=== PATIENT | female | born 1990 | race Caucasian/White ===

== ENCOUNTER 2019-05-21 17:20 | Emergency (ER) | payer BC ==
[~2019-05-21] VITALS: Ht 172.7 cm; Wt 81.6 kg
[2019-05-21 18:01] VITALS: BP 127/60
--- NOTE | 2019-05-21 18:22 | PHYS DOC ---
Past Medical History Past Medical History: No Pertinent History (MILA JIANG APRN) Past Surgical History: Other Additional Past Surgical Histo: dental (MILA JIANG APRN) Alcohol Use: None Drug Use: None (MILA JIANG APRN) Adult General Chief Complaint Chief Complaint: BLOOD IN URINE [facility] HPI Patient is a 28 year old female that presents with hematuria and frequency with lower pelvic pressure this been ongoing for 3 days. The patient states her pain as 3 out of 10 in severity and sharp. She states her last pressure. Started on May 12 but has since ended. (MILA JIANG APRN) Review of Systems Review of Systems Constitutional: Denies fever or chills [] Eyes: Denies change in visual acuity, redness, or eye pain [] HENT: Denies nasal congestion or sore throat [] Respiratory: Denies cough or shortness of breath [] Cardiovascular: No additional information not addressed in HPI [] GI: Reports lower pelvic pain Denies nausea, vomiting, bloody stools or diarrhea [] : Reports hematuria and frequency. Musculoskeletal: Denies back pain or joint pain [] Integument: Denies rash or skin lesions [] Neurologic: Denies headache, focal weakness or sensory changes [] Endocrine: Denies polyuria or polydipsia [] Complete systems were reviewed and found to be within normal limits, except as documented in this note. (MILA JIANG APRN) Allergies Allergies Allergies Coded Allergies Type Severity Reaction Last Updated Verified No Known Drug Allergies 07/03/15 No (KATHY HUERTAS MD) Physical Exam Physical Exam Constitutional: Well developed, well nourished, no acute distress, non-toxic appearance. [] HENT: Normocephalic, atraumatic, bilateral external ears normal, oropharynx moist, no oral exudates, nose normal. [] Eyes: PERRLA, EOMI, conjunctiva normal, no discharge. [] Neck: Normal range of motion, no tenderness, supple, no stridor. [] Cardiovascular:Heart rate regular rhythm, no murmur [] Lungs & Thorax: Bilateral breath sounds clear to auscultation [] Abdomen: Bowel sounds normal, soft, no tenderness, no masses, no pulsatile masses. [] Skin: Warm, dry, no erythema, no rash. [] Back: No tenderness, no CVA tenderness. [] Extremities: No tenderness, no cyanosis, no clubbing, ROM intact, no edema. [] Neurologic: Alert and oriented X 3, normal motor function, normal sensory f unction, no focal deficits noted. [] Psychologic: Affect normal, judgement normal, mood normal. [] (MILA JIANG APRN) Current Patient Data Vital Signs Vital Signs Date Time Temp Pulse Resp B/P (MAP) Pulse Ox O2 Delivery O2 Flow Rate FiO2 05/21/19 18:01 98.7 78 18 127/60 (82) 99 Room Air 98.7 (KATHY HUERTAS MD) Lab Values Laboratory Tests Test 05/21/19 18:04 05/21/19 18:10 Urine Collection Type Void Urine Color [place] Urine Clarity Clear Urine pH 5.5 Urine Specific [place] 1.010 Urine Protein Negative mg/dL (NEG-TRACE) Urine Glucose (UA) Negative mg/dL (NEG) Urine Ketones (Stick) Negative mg/dL (NEG) Urine Blood Large (NEG) Urine Nitrite Positive (NEG) Urine Bilirubin Negative (NEG) Urine Urobilinogen Dipstick 1.0 mg/dL (0.2 mg/dL) Urine Leukocyte Esterase Moderate (NEG) Urine RBC 3-5 /HPF (0-2) Urine WBC >40 /HPF (0-4) Urine Squamous Epithelial Cells Few /LPF Urine Bacteria Moderate /HPF (0-FEW) POC Urine HCG, Qualitative Hcg negative (Negative) (KATHY HUERTAS MD) EKG EKG [] (MILA JIANG APRN) Radiology/Procedures Radiology/Procedures [] (MILA JIANG APRN) Course & Med Decision Making Course & Med Decision Making Pertinent Labs and Imaging studies reviewed. (See chart for details) Will get UA. UA shows nitrate and leukocytes. Will treat for UTI. Patient request medicine for yeast infections as she normally gets yeast infections with antibiotics. (MILA JIANG APRN) Course & Med Decision Making Staff Physician Addendum: I was working in the ER during the course of this patient's visit. I was available for consultation as needed, but I was not directly involved in the care of this patient. (KATHY HUERTAS MD) Dragon Disclaimer Dragon Disclaimer This electronic medical record was generated, in whole or in part, using a voice recognition dictation system. (MILA JIANG APRN) Departure Departure Impression: Primary Impression: Urinary tract infection Disposition: HOME, SELF-CARE Condition: STABLE Referrals: NO PCP (PCP) Patient Instructions: Urinary Tract Infection Additional Instructions: Thank you for visiting [facility]. We appreciate you trusting us with your care. If any additional problems come up don't hesitate to return to visit us. Please follow up with your primary care provider so they can plan additional care if needed and know about the problem that you had. If symptoms worsen come back to the Emergency Department. Any concerning symptoms that start such as chest pain, shortness of air, weakness or numbness on one side of the body, running high fevers or any other concerning symptoms return to the ER. You have been prescribed an antibiotic today to help fight your infection. Please take all of the antibiotic as directed. If after 48 hours the infection is not improving, please return for more care. If the infection worsens, return to ER for additional care. Scripts Fluconazole (DIFLUCAN) 150 Mg Tablet 1 TAB PO ONCE, #1 TAB 1 Refill Prov: MILA JIANG APRN 05/21/19 Cephalexin (KEFLEX) 500 Mg Capsule 1 CAP PO BID for 7 Days, #14 CAP 0 Refills Prov: MILA JIANG APRN 05/21/19 Problem Qualifiers Primary Impression: Urinary tract infection Urinary tract infection type: acute cystitis Hematuria presence: with hematuria Qualified Codes: N30.01 - Acute cystitis with hematuria MILA JIANG APRN May 21, 2019 18:22 KATHY HUERTAS MD May 21, 2019 22:26
[2019-05-21 18:25] LABS: BILIRUBIN,URINE NEGATIVE (NEG); CLARITY,URINE CLEAR; COLOR,URINE ORANGE; NITRITE,URINE POSITIVE (NEG); PH,URINE 5.5; PROTEIN,URINE NEGATIVE (NEG-TRACE)
[2019-05-21 18:46] LABS: WBC,URINE >40 /HPF (0-4)
[2019-05-21 18:47] LABS: BACTERIA,URINE MODERATE /HPF (0-FEW); SQUAMOUS EPITHELIAL CELL,UR FEW /LPF
[2019-05-21] MEDS ORDERED: CEPH-264 PO (18:51)
[2019-05-21] MEDS ORDERED: FLUC150T PO (18:55)
== END 2019-05-21 18:59 | disposition home or self-care (01) ==
LOC: ER 17:20
DX: N30.01 Acute cystitis with hematuria (principal); R35.0 Frequency of micturition
CPT/HCPCS: 81001; 81025; 87086; 99284

== ENCOUNTER 2020-08-08 19:11 | Emergency (ER) | payer BC, MEDICAID, OTHER ==
[~2020-08-08] VITALS: Ht 172.7 cm; Wt 84.1 kg
[~2020-08-08 19:11] MED LIST: CEPH-264 PO; FLUC150T PO
[2020-08-08 19:50] LABS: BILIRUBIN,URINE NEGATIVE (NEG); CLARITY,URINE CLEAR; COLOR,URINE YELLOW; NITRITE,URINE NEGATIVE (NEG); PROTEIN,URINE NEGATIVE (NEG-TRACE); UROBILINOGEN,URINE 0.2 mg/dL (0.2 mg/dL)
[2020-08-08 19:58] LABS: AMORPHOUS SEDIMENT,UR PRESENT /HPF; BACTERIA,URINE FEW /HPF (0-FEW); WBC,URINE 20-40 /HPF (0-4)
[2020-08-08 21:02] LABS: BASO # 0.1 x10^3/uL (0.0-0.2); BASO % 1 % (0-3); EOS # 0.1 x10^3/uL (0.0-0.7); EOS % 1 % (0-3); HEMATOCRIT 36.4 % (36.0-47.0); HEMOGLOBIN 12.4 g/dL (12.0-15.5); LYMPH # 2.9 x10^3/uL (1.0-4.8); LYMPH % 36 % (24-48); MEAN CORPUSCULAR HEMOGLOBIN 32 pg (25-35); MEAN CORPUSCULAR HGB CONC 34 g/dL (31-37); MEAN CORPUSCULAR VOLUME 94 fL (79-100); MONO # 0.5 x10^3/uL (0.0-1.1); MONO % 7 % (0-9); NEUT # 4.6 x10^3/uL (1.8-7.7); NEUT % 56 % (31-73); PLATELET COUNT 188 x10^3/uL (140-400); RED BLOOD COUNT 3.86 x10^6/uL (3.50-5.40); RED CELL DISTRIBUTION WIDTH 13.1 % (11.5-14.5); WHITE BLOOD COUNT 8.1 x10^3/uL (4.0-11.0)
--- NOTE | 2020-08-08 21:58 | ED.ADGEN ---
Past Medical History Past Medical History: No Pertinent History Past Surgical History: Other Additional Past Surgical Histo: dental Smoking Status: Never Smoker Alcohol Use: None Drug Use: None General Adult EDM: Chief Complaint: VAGINAL BLEEDING HPI: HPI: Patient is a 30 year old female who presents emergency department with complaints of vaginal bleeding and . Patient reports her last menstrual cycle was on June 13, 2020. Patient is 3, para 2. She denies any pain at this time. Patient describes the bleeding is bright red in color. She denies any back pain, dysuria, hematuria, increased urinary frequency, nausea, vomiting, diarrhea, or abdominal pain. Patient states that her STEWARD/STEWARDESS SECOND is Dr. Diallo. She has not had her first appointment for this as of yet. Review of Systems: Review of Systems: Complete ROS is negative unless otherwise noted in HPI. Allergies: Allergies: Allergies Coded Allergies Type Severity Reaction Last Updated Verified No Known Drug Allergies 07/03/15 No Physical Exam: PE: See Above Constitutional: Well developed, well nourished, no acute distress, non-toxic appearance. [] HENT: Normocephalic, atraumatic, bilateral external ears normal, nose normal. [] Eyes: PERRLA, EOMI, conjunctiva normal, no discharge. [] Neck: Normal range of motion, no stridor. [] Cardiovascular:Heart rate regular rhythm Lungs & Thorax: Respirations even and unlabored, no retractions, no respiratory distress Abdomen: soft, no tenderness, no palpable masses Skin: Warm, dry, no erythema, no rash. [] Extremities: No cyanosis, ROM intact, no edema. [] Neurologic: Alert and oriented X 3, no focal deficits noted. [] Psychologic: Affect normal, judgement normal, mood normal. [] Current Patient Data: Labs: Laboratory Tests Test 08/08/20 19:20 08/08/20 19:24 08/08/20 20:45 Urine Collection Type Unknown Urine Color Yellow Urine Clarity Clear Urine pH 6.0 (<5.0-8.0) Urine Specific [place] 1.025 (1.000-1.030) Urine Protein Negative mg/dL (NEG-TRACE) Urine Glucose (UA) Negative mg/dL (NEG) Urine Ketones (Stick) Negative mg/dL (NEG) Urine Blood Large (NEG) Urine Nitrite Negative (NEG) Urine Bilirubin Negative (NEG) Urine Urobilinogen Dipstick 0.2 mg/dL (0.2 mg/dL) Urine Leukocyte Esterase Moderate (NEG) Urine RBC 1-2 /HPF (0-2) Urine WBC 20-40 /HPF (0-4) Urine Squamous Epithelial Cells Few /LPF Urine Amorphous Sediment Present /HPF Urine Bacteria Few /HPF (0-FEW) Urine Mucus Slight /LPF POC Urine HCG, Qualitative Hcg positive (Negative) White Blood Count 8.1 x10^3/uL (4.0-11.0) Red Blood Count 3.86 x10^6/uL (3.50-5.40) Hemoglobin 12.4 g/dL (12.0-15.5) Hematocrit 36.4 % (36.0-47.0) Mean Corpuscular Volume 94 fL (79-100) Mean Corpuscular Hemoglobin 32 pg (25-35) Mean Corpuscular Hemoglobin Concent 34 g/dL (31-37) Red Cell Distribution Width 13.1 % (11.5-14.5) Platelet Count 188 x10^3/uL (140-400) Neutrophils (%) (Auto) 56 % (31-73) Lymphocytes (%) (Auto) 36 % (24-48) Monocytes (%) (Auto) 7 % (0-9) Eosinophils (%) (Auto) 1 % (0-3) Basophils (%) (Auto) 1 % (0-3) Neutrophils # (Auto) 4.6 x10^3/uL (1.8-7.7) Lymphocytes # (Auto) 2.9 x10^3/uL (1.0-4.8) Monocytes # (Auto) 0.5 x10^3/uL (0.0-1.1) Eosinophils # (Auto) 0.1 x10^3/uL (0.0-0.7) Basophils # (Auto) 0.1 x10^3/uL (0.0-0.2) Maternal Serum HCG Beta Subunit 20998 mIU/mL (0-5) H Laboratory Tests 08/08/20 20:45 Vital Signs: Vital Signs Date Time Temp Pulse Resp B/P (MAP) Pulse Ox O2 Delivery O2 Flow Rate FiO2 08/08/20 22:36 82 22 123/61 (81) 100 Room Air 08/08/20 19:20 98.1 98.1 EKG: EKG: [] Heart Score: Risk Factors: Risk Factors: DM, Current or recent (<one month) smoker, HTN, HLP, family history of CAD, obesity. Risk Scores: Score 0 - 3: 2.5% MACE over next 6 weeks - Discharge Home Score 4 - 6: 20.3% MACE over next 6 weeks - Admit for Clinical Observation Score 7 - 10: 72.7% MACE over next 6 weeks - Early Invasive Strategies Radiology/Procedures: Radiology/Procedures: PROCEDURE: PREG 1ST TRIMESTER Obstetric ultrasound less than 14 weeks: Reason for examination: Vaginal bleeding with . Transvaginal ultrasound examination of the pelvis was performed. Uterus measures approximately 10 x 5.7 x 5.1 cm in greatest dimensions. There is a gestational sac in the endometrial cavity which shows a normal contour. No pole or yolk sac is identified at this time. Gestational sac shows a mean diameter of 1.83 cm which corresponds to gestational age of 6 weeks 5 days. This could reflect early gestation but blighted ovum cannot be excluded and follow- up ultrasound is recommended. Right ovary measures 2.9 x 2.4 x 2.3 cm in greatest dimension with good vascular flow. There is a 1.7 cm cystic lesion probably representing a corpus luteal cyst. Left ovary measures 2.5 x 1.7 x 1.6 cm in greatest dimension with good vascular flow and no mass. IMPRESSION: Intrauterine gestational sac identified but no yolk sac or pole identified at this time. This may reflect early gestation however blighted ovum cannot be excluded. Recommend follow-up ultrasound evaluation. [] Course & Med Decision Making: Course & Med Decision Making Pertinent Labs and Imaging studies reviewed. (See chart for details) 30-year-old female presents emergency department complaints of light vaginal bleeding during . CBC was unremarkable; UA revealed 20-40 white blood cells with few bacteria, patient denied any symptoms; type is O+; patient's hCG level was 16,043. Ultrasound revealed a empty gestational sac with no pole or yolk sac identified. I advised the patient of her results and informed her that she is likely having a miscarriage. I offered to contact patient's OB Dr. Diallo to inform him of the patient in the emergency room and possibly arrange for D&C. Patient stated that she would like to go home. I provided the patient with current hCG level and encouraged her to practice pelvic rest until she follows up with Dr. Diallo, I advised her to call Dr. Diallo's office on Tuesday for reevaluation and a repeat hCG level. I instructed the patient to return to the ER if her symptoms worsened or fever develop. Patient verbalized an understanding of home care, medications, follow-up, and return to ED instructions and was in agreement with the plan of care. [] Dragon Disclaimer: Dragon Disclaimer: This electronic medical record was generated, in whole or in part, using a voice recognition dictation system. Departure Departure Impression: Primary Impression: Threatened in first trimester Disposition: 01 DC HOME SELF CARE/HOMELESS Condition: STABLE Referrals: MILA DIALLO MD (PCP) Patient Instructions: Threatened Miscarriage, [id number] Additional Instructions: Follow up with Dr. Diallo's office next week for repeat ultrasound and HCG. Today your level was 16,043. Return to the ER if your symptoms worsen. KLAUS TAYLOR APRN Aug 08, 2020 21:58
--- NOTE | 2020-08-08 22:15 | RAD ---
Obstetric ultrasound less than 14 weeks: Reason for examination: Vaginal bleeding with . Transvaginal ultrasound examination of the pelvis was performed. Uterus measures approximately 10 x 5.7 x 5.1 cm in greatest dimensions. There is a gestational sac in the endometrial cavity which shows a normal contour. No pole or yolk sac is identified at this time. Gestational sac shows a mean diameter of 1.83 cm which corresponds to gestational age of 6 wee ks 5 days. This could reflect early gestation but blighted ovum cannot be excluded and follow-up ultr asound is recommended. Right ovary measures 2.9 x 2.4 x 2.3 cm in greatest dimension with good vascular flow. There is a 1.7 cm cystic lesion probably representing a corpus luteal cyst. Left ovary measures 2.5 x 1.7 x 1.6 cm in greatest dimension with good vascular flow and no mass. IMPRESSION: Intrauterine gestational sac identified but no yolk sac or pole identified at this time. This m ay reflect early gestation however blighted ovum cannot be excluded. Recommend follow-up ultrasound e valuation. Electronically signed by: Regina Polo MD (08/08/2020 10:12 PM) DEVI
[2020-08-08 22:36] VITALS: BP 123/61
== END 2020-08-08 22:36 | disposition home or self-care (01) ==
LOC: ER 19:11
DX: O20.0 Threatened abortion (principal); Z98.890 Other specified postprocedural states; Z3A.01 Less than 8 weeks gestation of pregnancy
CPT/HCPCS: 36415; 76801; 81001; 81025; 84702; 85025; 86900; 86901; 87086; 99285

== ENCOUNTER → 2020-08-11 | Outpatient (CLI) | payer OTHER ==
[2020-08-08 22:36] VITALS: BP 123/61
== END ==
LOC: LAB 14:54
PROVIDERS: ATTEND Obstetrics & Gynecology
DX: O02.1 Missed abortion (principal)
CPT/HCPCS: 36415; 84702

== ENCOUNTER → 2020-08-27 | Outpatient (CLI) | payer OTHER ==
[2020-08-08 22:36] VITALS: BP 123/61
== END ==
LOC: LAB 11:56
PROVIDERS: ATTEND Obstetrics & Gynecology
DX: N89.8 Other specified noninflammatory disorders of vagina (principal)
CPT/HCPCS: 88175; Q0111

== ENCOUNTER → 2020-09-24 | Outpatient (CLI) | payer OTHER | LOC: SPEC 11:28 | PROVIDERS: ATTEND Obstetrics & Gynecology | DX: Z20.2 Contact with and (suspected) exposure to infections with a predominantly sexual mode of transmission (principal) | CPT/HCPCS: 87491; 87591; 87661 ==

== ENCOUNTER → 2020-12-05 | Outpatient (CLI) | payer OTHER | LOC: SPEC 11:00 | PROVIDERS: ATTEND Obstetrics & Gynecology | DX: Z20.2 Contact with and (suspected) exposure to infections with a predominantly sexual mode of transmission (principal) | CPT/HCPCS: 87491; 87591; 87661; Q0111 ==

== ENCOUNTER → 2020-12-31 | Outpatient (CLI) | payer OTHER | LOC: SPEC 15:14 | PROVIDERS: ATTEND Obstetrics & Gynecology | DX: A64 Unspecified sexually transmitted disease (principal); N89.8 Other specified noninflammatory disorders of vagina | CPT/HCPCS: 87491; 87591; 87661; Q0111 ==

== ENCOUNTER → 2021-03-06 | Outpatient (CLI) | payer OTHER | LOC: LAB 12:03 | PROVIDERS: ATTEND Internal Medicine Pulmonary Disease | DX: Z20.822 Contact with and (suspected) exposure to COVID-19 (principal) | CPT/HCPCS: U0003; U0005 ==

== ENCOUNTER → 2021-03-13 | Outpatient (CLI) | payer OTHER | LOC: LAB 13:25 | PROVIDERS: ATTEND Internal Medicine Pulmonary Disease | DX: Z20.822 Contact with and (suspected) exposure to COVID-19 (principal) | CPT/HCPCS: U0003; U0005 ==

== ENCOUNTER 2021-05-09 11:36 | Emergency (ER) | payer OTHER ==
[~2021-05-09] VITALS: Ht 172.7 cm; Wt 86.8 kg
[2021-05-09 12:30] LABS: BILIRUBIN,URINE SMALL (NEG); CLARITY,URINE TURBID; COLOR,URINE AMBER; NITRITE,URINE NEGATIVE (NEG); PH,URINE 5.5 (<5.0-8.0); PROTEIN,URINE 30 mg/dL (NEG-TRACE)
[2021-05-09] MEDS ORDERED: DOXY100C3 PO (12:41)
--- NOTE | 2021-05-09 12:41 | PHYS DOC ---
Past Medical History Past Medical History: No Pertinent History Past Surgical History: No Surgical History Additional Past Surgical Histo: dental Smoking Status: Never Smoker Alcohol Use: None Drug Use: None General Adult EDM: Chief Complaint: SEXUALLY TRANSMITTED DISEASE HPI: HPI: Patient is a 30 year old female who presents with 1 day of white discharge with a foul smell. She states she has had unprotected sex and would like to be treated for STDs today also. She denies urinary symptoms, abdominal pain, nausea, vomiting, diarrhea, back pain, fever, shortness of breath, chest pain. Review of Systems: Review of Systems: Constitutional: Denies fever or chills. [] Eyes: Denies change in visual acuity. [] HENT: Denies nasal congestion or sore throat. [] Respiratory: Denies cough or shortness of breath. [] Cardiovascular: Denies chest pain or edema. [] GI: Denies abdominal pain, nausea, vomiting, bloody stools or diarrhea. [] : Denies dysuria. + Vaginal discharge [] Musculoskeletal: Denies back pain or joint pain. [] Integument: Denies rash. [] Neurologic: Denies headache, focal weakness or sensory changes. [] Endocrine: Denies polyuria or polydipsia. [] Lymphatic: Denies swollen glands. [] Psychiatric: Denies depression or anxiety. [] Heart Score: C/O Chest Pain: No Allergies: Allergies: Allergies Coded Allergies Type Severity Reaction Last Updated Verified No Known Drug Allergies 05/09/21 No Physical Exam: PE: Constitutional: Well developed, well nourished, no acute distress, non-toxic appearance. [] HENT: Normocephalic, atraumatic, bilateral external ears normal, oropharynx moist, no oral exudates, nose normal. [] Eyes: PERRLA, EOMI, conjunctiva normal, no discharge. [] Neck: Normal range of motion, no tenderness, supple, no stridor. [] Cardiovascular:Heart rate regular rhythm, no murmur [] Lungs & Thorax: Bilateral breath sounds clear to auscultation [] Abdomen: Bowel sounds normal, soft, no tenderness, no masses, no pulsatile masses. [] Skin: Warm, dry, no erythema, no rash. [] Back: No tenderness, no CVA tenderness. [] Extremities: No tenderness, no cyanosis, no clubbing, ROM intact, no edema. [] Neurologic: Alert and oriented X 3, normal motor function, normal sensory function, no focal deficits noted. [] Psychologic: Affect normal, judgement normal, mood normal. [] Normal physical exam Current Patient Data: Labs: Laboratory Tests Test 05/09/21 12:24 POC Urine HCG, Qualitative Hcg negative (Negative) Vital Signs: Vital Signs Date Time Temp Pulse Resp B/P (MAP) Pulse Ox O2 Delivery O2 Flow Rate FiO2 05/09/21 12:14 98.1 87 20 122/73 (89) 95 Room Air 98.1 EKG: EKG: [] Radiology/Procedures: Radiology/Procedures: [] Course & Med Decision Making: Course & Med Decision Making Pertinent Labs and Imaging studies reviewed. (See chart for details) See HPI. Alert and oriented x4. Ambulatory steady gait. Speaks in full clear sentences. Skin pink warm and dry. Abdomen soft and nontender. Afebrile. Patient will be treated for chlamydia and gonorrhea. She is educated that she will be called in 48 hours only if something comes back positive. Pelvic Exam: Racing Board Marker present Abdomen: Nontender External Genitalia: Normal Skin Speculum: Normal vaginal mucosa, white cervical discharge Bimanual: No adnexal masses or tenderness, No CMT [] Dragon Disclaimer: Dragon Disclaimer: This electronic medical record was generated, in whole or in part, using a voice recognition dictation system. Departure Departure Impression: Primary Impression: Concern about sexually transmitted disease in female without diagnosis Additional Impressions: Bacterial vaginosis UTI (urinary tract infection) Disposition: HOME / SELF CARE / HOMELESS Condition: STABLE Referrals: NON,STAFF (PCP) MILA DIALLO MD Patient Instructions: Sexually Transmitted Disease Additional Instructions: Follow-up with a pouring crane operator if needed. Take medication as prescribed and with food. Do not have any sexual intercourse for 10 days after you finish the medication. You will be called in 48 hours only the chlamydia or gonorrhea comes back positive. Scripts Cephalexin (KEFLEX) 500 Mg Capsule 1 CAP PO TID, #30 CAP Prov: GERMAN BROWNLEE BLOCKER [employer]OMATIC 05/09/21 Doxycycline Hyclate (DOXYCYCLINE HYCLATE) 100 Mg Capsule 1 CAP PO BID, #14 CAP Prov: BAFUSOUMARA Alan [employer] 05/09/21 GERMAN BROWNLEE APRN May 09, 2021 12:41
[2021-05-09 12:45] LABS: BACTERIA,URINE MANY /HPF (0-FEW); WBC,URINE 20-40 /HPF (0-4)
[2021-05-09] MEDS ORDERED: cefTRIAXone IM 500 MG VIAL. IM ONE (12:45)
[2021-05-09] MEDS ORDERED: CEPH500C PO (13:20)
[2021-05-09] MEDS ORDERED: AZITHROMYCIN 250 MG TABLET. PO ONE (13:30)
[2021-05-09 13:52] VITALS: BP 128/72
[2021-05-11 14:11] LABS: GC PROBE Positive (Negative)
--- NOTE | 2021-05-12 13:59 | VNOTE ---
CALL BACK NOTE CALL BACK Microbiology 05/09/21 Urine Culture - Final, Complete 05/09/21 Wet Prep - Final, Complete Positive for gonorrhea. Spoke to patient, results given. Education provided on STDs MARTIR WOODSON RECREATIONAL VEHICLE REPAIRER May 12, 2021 13:59
== END 2021-05-09 13:52 | disposition home or self-care (01) ==
LOC: ER 11:36
DX: N39.0 Urinary tract infection, site not specified (principal); N76.0 Acute vaginitis; B96.89 Other specified bacterial agents as the cause of diseases classified elsewhere; Z20.2 Contact with and (suspected) exposure to infections with a predominantly sexual mode of transmission
CPT/HCPCS: 81001; 81025; 87086; 87491; 87591; 96372; 99284; J0696; Q0111; 87147; 99283

== ENCOUNTER → 2021-09-03 | Outpatient (CLI) | payer OTHER ==
[~2021-09-03] MED LIST changes: +CEPH500C PO; +DOXY100C3 PO
== END ==
LOC: ONCLAB 11:50
PROVIDERS: ATTEND Obstetrics & Gynecology
DX: N89.8 Other specified noninflammatory disorders of vagina (principal); R30.0 Dysuria
CPT/HCPCS: 87491; 87591; Q0111; 87086

== ENCOUNTER → 2021-12-01 | Outpatient (CLI) | payer OTHER | LOC: LAB 08:55 | PROVIDERS: ATTEND Internal Medicine Pulmonary Disease | DX: R09.81 Nasal congestion (principal); J02.9 Acute pharyngitis, unspecified; Z20.822 Contact with and (suspected) exposure to COVID-19 | CPT/HCPCS: U0003 ==